=== PATIENT | female | born 1995 | race Caucasian/White ===

== ENCOUNTER 2022-09-14 17:21 | Emergency (ER) | payer OTHER ==
[~2022-09-14] VITALS: Ht 165.1 cm; Wt 77.3 kg
[2022-09-14 17:22] VITALS: BP 121/67
[2022-09-14 18:32] LABS: BASO % 0.6 % (0.0-1.0); EOS # 0.1 10^3/uL (0.0-0.5); EOS % 1.2 % (0.0-3.0); HEMATOCRIT 40.1 % (36.0-47.0); HEMOGLOBIN 13.1 g/dl (12.0-15.5); LYMPH # 2.8 10^3/uL (1.5-5.0); LYMPH % 38.6 % (24.0-44.0); MEAN CORPUSCULAR HEMOGLOBIN 29.2 pg (27.0-33.0); MEAN CORPUSCULAR HGB CONC 32.7 g/dl (32.0-36.5); MEAN CORPUSCULAR VOLUME 89.3 fl (80.0-96.0); MONO # 0.4 10^3/uL (0.0-0.8); MONO % 5.4 % (2.0-8.0); NEUTROPHILS # 3.9 10^3/uL (1.5-8.5); NEUTROPHILS % 54.1 % (36.0-66.0); PLATELET COUNT, AUTOMATED 197 10^3/uL (150-450); RED BLOOD COUNT 4.49 10^6/uL (4.00-5.40); WHITE BLOOD COUNT 7.2 10^3/uL (4.0-10.0)
[2022-09-14 18:58] LABS: BLOOD UREA NITROGEN 10 MG/DL (9-23); CALCIUM LEVEL 8.9 MG/DL (8.5-10.1); CARBON DIOXIDE LEVEL 26 MMOL/L (20-31); CHLORIDE LEVEL 106 MMOL/L (98-107); CREATININE FOR GFR 0.66 MG/DL (0.55-1.30); GLOMERULAR FILTRATION RATE > 60.0 (>60); GLUCOSE, FASTING 87 MG/DL (60-100); HCG, SERUM QUANTITATIVE 68.7 MIU/ML (<4.2); SODIUM LEVEL 138 MMOL/L (136-145)
[2022-09-14 20:26] LABS: GC DNA AMPLIFICATION NEGATIVE (NEGATIVE)
== END 2022-09-14 21:30 | disposition home or self-care (01) ==
LOC: M ED 17:21
DX: O20.0 Threatened abortion (principal); Z3A.00 Weeks of gestation of pregnancy not specified; Z88.1 Allergy status to other antibiotic agents; Z88.2 Allergy status to sulfonamides; Z91.040 Latex allergy status; Z98.890 Other specified postprocedural states

== ENCOUNTER → 2022-09-16 | Outpatient (CLI) | payer OTHER | LOC: M LAB 08:49 | PROVIDERS: ATTEND Obstetrics & Gynecology | DX: Z32.01 Encounter for pregnancy test, result positive (principal) ==

== ENCOUNTER 2023-07-01 10:35 | Outpatient (CLI) | payer OTHER ==
[~2023-07-01] VITALS: Ht 165.1 cm; Wt 93.6 kg
[2023-07-01 10:48] VITALS: BP 128/60
[2023-07-01] MEDS ORDERED: BUTACAP78 PO (11:02)
[2023-07-01] MEDS ORDERED: METO10TA2 PO (11:02)
[2023-07-01] MEDS ORDERED: REGL5TAB2 PO (11:02)
[2023-07-01] MEDS ORDERED: PRENTAB9 PO (11:02)
[2023-07-01] MEDS ORDERED: FREM225A SQ (11:02)
[2023-07-01 11:05] VITALS: BP 105/59
[2023-07-01] MEDS ORDERED: HOME MED LIST COMPLETE! XX SCH (11:05)
[2023-07-01] MEDS ORDERED: LR 1,000 ML IV ONE (11:40)
[2023-07-01 12:07] LABS: BASO % 0.2 % (0.0-1.0); EOS # 0.1 10^3/uL (0.0-0.5); EOS % 0.8 % (0.0-3.0); HEMATOCRIT 33.4 % (36.0-47.0); HEMOGLOBIN 11.3 g/dl (12.0-15.5); LYMPH # 1.4 10^3/uL (1.5-5.0); MEAN CORPUSCULAR HEMOGLOBIN 29.9 pg (27.0-33.0); MEAN CORPUSCULAR HGB CONC 33.8 g/dl (32.0-36.5); MEAN CORPUSCULAR VOLUME 88.4 fl (80.0-96.0); MONO # 0.5 10^3/uL (0.0-0.8); MONO % 4.9 % (2.0-8.0); NEUTROPHILS # 8.8 10^3/uL (1.5-8.5); NEUTROPHILS % 80.1 % (36.0-66.0); PLATELET COUNT, AUTOMATED 144 10^3/uL (150-450); RED BLOOD COUNT 3.78 10^6/uL (4.00-5.40); WHITE BLOOD COUNT 10.9 10^3/uL (4.0-10.0)
[2023-07-01 12:29] LABS: ALBUMIN 2.6 G/DL (3.2-5.2); ALKALINE PHOSPHATASE 117 U/L (46-116); ALT/SGPT 13 U/L (7.0-40); AST/SGOT 12 U/L (<34); BILIRUBIN,TOTAL 0.3 MG/DL (0.3-1.2); BLOOD UREA NITROGEN 7 MG/DL (9-23); CALCIUM LEVEL 8.6 MG/DL (8.5-10.1); CARBON DIOXIDE LEVEL 22 MMOL/L (20-31); CHLORIDE LEVEL 108 MMOL/L (98-107); CREATININE FOR GFR 0.43 MG/DL (0.55-1.30); GLOMERULAR FILTRATION RATE > 60.0 (>60); GLUCOSE, FASTING 72 MG/DL (60-100); POTASSIUM SERUM 3.8 MMOL/L (3.5-5.1); SODIUM LEVEL 141 MMOL/L (136-145); TOTAL PROTEIN 5.7 G/DL (5.7-8.2)
== END 2023-07-01 14:51 | disposition home or self-care (01) ==
LOC: M LDO 10:35
PROVIDERS: ATTEND Obstetrics & Gynecology
DX: O26.893 Other specified pregnancy related conditions, third trimester (principal); M54.59 Other low back pain; Z3A.32 32 weeks gestation of pregnancy; Z88.2 Allergy status to sulfonamides; Z91.040 Latex allergy status
CPT/HCPCS: 36415; 59025; 80053; 81001; 85025; G0463

== ENCOUNTER 2023-09-02 14:11 | Inpatient (IN) | payer OTHER ==
[2023-09-02] VITALS (7 sets, daily range): BP systolic 119–138; BP diastolic 69–82
[~2023-09-02] VITALS: Ht 165.1 cm; Wt 95.9 kg
[~2023-09-02 14:11] MED LIST: BUTACAP78 PO; FREM225A SQ; METO10TA2 PO; PRENTAB9 PO; REGL5TAB2 PO
[2023-09-02] MEDS ORDERED: HOME MED LIST COMPLETE! XX SCH (14:35)
[2023-09-02 15:18] LABS: BASO % 0.1 % (0.0-1.0); EOS % 0.3 % (0.0-3.0); HEMATOCRIT 35.2 % (36.0-47.0); HEMOGLOBIN 11.6 g/dl (12.0-15.5); LYMPH # 1.7 10^3/uL (1.5-5.0); LYMPH % 18.2 % (24.0-44.0); MEAN CORPUSCULAR HEMOGLOBIN 28.2 pg (27.0-33.0); MEAN CORPUSCULAR VOLUME 85.6 fl (80.0-96.0); MONO # 0.4 10^3/uL (0.0-0.8); MONO % 4.4 % (2.0-8.0); NEUTROPHILS # 7.2 10^3/uL (1.5-8.5); NEUTROPHILS % 76.7 % (36.0-66.0); PLATELET COUNT, AUTOMATED 163 10^3/uL (150-450); RED BLOOD COUNT 4.11 10^6/uL (4.00-5.40); WHITE BLOOD COUNT 9.3 10^3/uL (4.0-10.0)
[2023-09-02] MEDS ORDERED: OXYTOCIN DRIP 30 UNITS in IV 1 EA IV PRN ×4 (16:15)
[2023-09-02] MEDS ORDERED: TRANEXAMIC ACID INJection 1,000 MG in NS 100 ML IV PRN (16:15)
[2023-09-02] MEDS ORDERED: LIDOCAINE 1% MDV 20ML VIAL INFIL PRN (16:15)
[2023-09-02] MEDS ORDERED: METHYLERGONOVINE MALEATE 0.2MG/ML 1ML VIAL IM PRN (16:15)
[2023-09-02] MEDS: LR 1,000 ML IV SCH (16:15)
[2023-09-02] MEDS: miSOPROStol 50MCG 1/2 TABLET PO SCH ×2 (17:11→21:13)
[2023-09-03] VITALS (25 sets, daily range): BP systolic 110–139; BP diastolic 65–81
[2023-09-03] MEDS: LR 1,000 ML IV SCH ×5 (00:15→22:51)
[2023-09-03] MEDS: miSOPROStol 50MCG 1/2 TABLET PO SCH ×5 (03:55→17:00)
[2023-09-03] MEDS ORDERED: OXYTOCIN DRIP 30 UNITS in IV 1 EA IV SCH (17:20)
[2023-09-03] MEDS ORDERED: NALBUPHINE HCL 1MG/0.1ML (100MG/10ML) MDV IV PRN (22:35)
[2023-09-03] MEDS ORDERED: PROMETHAZINE 25MG/ML 1ML VIAL IV PRN (22:35)
[2023-09-04] VITALS (45 sets, daily range): BP systolic 103–139; BP diastolic 60–89; TEMP 97.7
[2023-09-04] MEDS: LR 1,000 ML IV SCH ×3 (04:54→18:05)
[2023-09-04] MEDS ORDERED: EPIDURAL/PCA KEYS XX PRN (15:20)
[2023-09-04] MEDS ORDERED: NALOXONE INJ 0.4MG/1ML VIAL IV PRN ×3 (15:20→22:25)
[2023-09-04] MEDS ORDERED: FENTANYL/ROPIVACAINE/NACL BAG 100 ML EPIDURAL SCH (15:20)
[2023-09-04] MEDS ORDERED: ONDANSETRON 4MG 2ML VIAL IV PRN ×3 (15:20→22:25)
[2023-09-04] MEDS ORDERED: diphenhydrAMINE 50MG/ML VIAL IV PRN ×2 (15:20→22:25)
[2023-09-04] MEDS ORDERED: ePHEDrine SULFATE 25 MG/5 ML(5MG/ML) SYRINGE IVP PRN (15:20)
[2023-09-04] MEDS ORDERED: LR 500 ML IV PRN (15:20)
[2023-09-04] MEDS ORDERED: REFLB XX ONE (15:24)
[2023-09-04] MEDS ORDERED: BICITRA 30ML SOLN UDC PO ONE (17:35)
[2023-09-04] MEDS ORDERED: ceFAZolin SOD 2 GM in IV 1 EA IV ONE (17:35)
[2023-09-04] MEDS ORDERED: ACETAMINOPHEN 1000MG 100ML IV BAG As Ordered ONE (21:08)
[2023-09-04] MEDS ORDERED: ONDANSETRON 4MG 2ML VIAL As Ordered ONE (21:08)
[2023-09-04] MEDS ORDERED: MORPHINE PRES-FREE INJ 10 MG/10 ML VIAL As Ordered ONE (21:08)
[2023-09-04] MEDS ORDERED: SODIUM BICARBONATE 8.4% INJ 50MEQ 50ML VIAL As Ordered ONE (21:08)
[2023-09-04] MEDS ORDERED: OXYTOCIN 30UNITS IN 0.9% NaCl 500ML IV BAG As Ordered ONE ×2 (21:08→21:49)
[2023-09-04] MEDS ORDERED: ePHEDrine SULFATE 25 MG/5 ML(5MG/ML) SYRINGE As Ordered ONE (21:08)
[2023-09-04] MEDS ORDERED: METOCLOPRAMIDE INJ 10MG/2ML VIAL As Ordered ONE (21:08)
[2023-09-04] MEDS ORDERED: LIDOCAINE 2% W/EPINEPHRINE 20ML VIAL **PRES FREE As Ordered ONE (21:08)
[2023-09-04] MEDS ORDERED: KETOROLAC 60MG 2ML VIAL As Ordered ONE (21:08)
[2023-09-04 21:40] LABS: CORD GAS ABE A -3.7; CORD GAS HCO3 A 23.1 MMOL/L; CORD GAS HCO3 V 23.5 MMOL/L; CORD GAS O2 SAT A 18.3 %; CORD GAS O2 SAT V 36.4 %; CORD GAS PCO2 A 48.8 mmHg; CORD GAS PCO2 V 47.4 mmHg; CORD GAS PH A 7.293 UNITS; CORD GAS PH V 7.313 UNITS; CORD GAS PO2 A 12.7 mmHg; CORD GAS PO2 V 17.6 mmHg; CORD GAS SBC A 19.7 MMOL/L; CORD GAS SBC V 20.6 MMOL/L; CORD GAS TCO2 A 24.6 MMOL/L; CORD GAS TCO2 V 24.9 MMOL/L
[2023-09-04] MEDS ORDERED: METHYLERGONOVINE MALEATE 0.2MG/ML 1ML VIAL IM PRN (22:15)
[2023-09-04] MEDS ORDERED: oxyCODONE 5MG TAB PO PRN ×3 (22:15→22:25)
[2023-09-04] MEDS ORDERED: SIMETHICONE 80MG CHEW TAB PO PRN (22:15)
[2023-09-04] MEDS ORDERED: METOCLOPRAMIDE INJ 10MG/2ML VIAL IV PRN ×2 (22:15→22:25)
[2023-09-04] MEDS ORDERED: LR 1,000 ML IV SCH (22:15)
[2023-09-04] MEDS ORDERED: OXYTOCIN DRIP 30 UNITS in IV 1 EA IV SCH (22:15)
[2023-09-04] MEDS ORDERED: RHOGAM 300MCG (1500IU) INJ IM SCH (22:15)
[2023-09-04] MEDS ORDERED: MEPERIDINE 25 MG/ML 1ML VIAL IV PRN (22:25)
[2023-09-04] MEDS: SLF 3 ML SYR IV SCH (22:25)
[2023-09-04] MEDS ORDERED: HYDROMORPHONE HCL 0.5 MG/ 0.5 ML SYRINGE IV PRN (22:25)
[2023-09-04] MEDS ORDERED: **NOTE PATIENT COMMENT** MISC XX SCH (22:25)
[2023-09-04] MEDS ORDERED: fentaNYL 100 MCG/2 ML INJECTION IV PRN (22:25)
[2023-09-05] VITALS: BP 125/65
[2023-09-05 00:30] VITALS: BP 121/66
[2023-09-05] MEDS: KETOROLAC 30 MG/ML 1ML VIAL IV SCH ×3 (03:23→15:38)
[2023-09-05 06:00] VITALS: BP 127/70; O2SAT 98
[2023-09-05] MEDS: ACETAMINOPHEN 500 MG TAB PO SCH ×5 (06:01→22:37)
[2023-09-05 07:58] LABS: HEMATOCRIT 32.8 % (36.0-47.0); HEMOGLOBIN 10.7 g/dl (12.0-15.5); MEAN CORPUSCULAR HEMOGLOBIN 28.5 pg (27.0-33.0); MEAN CORPUSCULAR HGB CONC 32.6 g/dl (32.0-36.5); MEAN CORPUSCULAR VOLUME 87.5 fl (80.0-96.0); PLATELET COUNT, AUTOMATED 153 10^3/uL (150-450); RED BLOOD COUNT 3.75 10^6/uL (4.00-5.40); WHITE BLOOD COUNT 14.6 10^3/uL (4.0-10.0)
[2023-09-05] MEDS: DOCUSATE SODIUM 100MG CAPSULE PO SCH ×2 (08:59→22:37)
[2023-09-05] MEDS: PRENATAL VITAMINS CHEWABLE TABLET PO SCH (08:59)
[2023-09-05] MEDS: SLF 3 ML SYR IV SCH ×2 (14:25→15:39)
[2023-09-05 18:00] VITALS: BP 111/59; O2SAT 99
[2023-09-05 22:16] VITALS: BP 119/74; O2SAT 98
[2023-09-05] MEDS: IBUPROFEN 800 MG TAB PO SCH (22:37)
[2023-09-06 02:14] VITALS: BP 120/65; O2SAT 98
[2023-09-06] MEDS: IBUPROFEN 800 MG TAB PO SCH (05:30)
[2023-09-06] MEDS: ACETAMINOPHEN 500 MG TAB PO SCH ×2 (05:30→10:15)
[2023-09-06 06:04] VITALS: BP 121/75; O2SAT 98
[2023-09-06] MEDS: PRENATAL VITAMINS CHEWABLE TABLET PO SCH (08:34)
[2023-09-06] MEDS: DOCUSATE SODIUM 100MG CAPSULE PO SCH (08:34)
[2023-09-06] MEDS ORDERED: OXYC-517 PO (08:41)
[2023-09-06] MEDS ORDERED: IBUP80TA PO (08:41)
[2023-09-06] MEDS ORDERED: COLA100C5 PO (08:41)
[2023-09-06] MEDS ORDERED: ACET-683 PO (08:41)
[2023-09-06] MEDS ORDERED: MEASLES,MUMPS,RUBELLA VACCINE INJ (MMR-II) SC.IMMUN ONE (09:00)
[2023-09-06 10:00] VITALS: BP 128/70; O2SAT 99
== END 2023-09-06 13:30 | disposition home or self-care (01) | DRG 773 ==
LOC: M LDI 14:11 → M OBS 09-04 23:32
PROVIDERS: ADMIT Obstetrics & Gynecology; ATTEND Obstetrics & Gynecology
PROC: 3E0P7GC Introduction of Other Therapeutic Substance into Female Reproductive, Via Natural or Artificial Opening (ICD-10-PCS; 2023-09-02)
PROC: 10D00Z1 Extraction of Products of Conception, Low, Open Approach (ICD-10-PCS; principal; 2023-09-04 20:00)
DX: O48.0 Post-term pregnancy (principal); Z37.0 Single live birth; Z3A.41 41 weeks gestation of pregnancy; O61.0 Failed medical induction of labor

== ENCOUNTER 2023-11-29 15:57 | Emergency (ER) | payer OTHER ==
[~2023-11-29] VITALS: Ht 165.1 cm; Wt 87.0 kg
[~2023-11-29 15:57] MED LIST changes: +ACET-683 PO; +COLA100C5 PO; +IBUP80TA PO; +OXYC-517 PO
[2023-11-29] MEDS: NS 1,000 ML IV ONE (17:15)
[2023-11-29 17:40] LABS: BASO % 0.4 % (0.0-1.0); EOS % 0.8 % (0.0-3.0); HEMATOCRIT 41.5 % (36.0-47.0); HEMOGLOBIN 13.9 g/dl (12.0-15.5); LYMPH % 21.5 % (24.0-44.0); MEAN CORPUSCULAR HEMOGLOBIN 28.5 pg (27.0-33.0); MEAN CORPUSCULAR HGB CONC 33.5 g/dl (32.0-36.5); MEAN CORPUSCULAR VOLUME 85.2 fl (80.0-96.0); MONO % 4.4 % (2.0-8.0); NEUTROPHILS % 72.6 % (36.0-66.0); PLATELET COUNT, AUTOMATED 262 10^3/uL (150-450); RED BLOOD COUNT 4.87 10^6/uL (4.00-5.40); WHITE BLOOD COUNT 10.9 10^3/uL (4.0-10.0)
[2023-11-29 17:41] LABS: EOS # 0.1 10^3/uL (0.0-0.5); LYMPH # 2.4 10^3/uL (1.5-5.0); MONO # 0.5 10^3/uL (0.0-0.8)
[2023-11-29 18:08] LABS: HCG, SERUM QUALITATIVE NEGATIVE (NEGATIVE)
[2023-11-29 18:09] LABS: LIPASE 27 U/L (12-53)
[2023-11-29 18:11] LABS: ALKALINE PHOSPHATASE 106 U/L (46-116); ALT/SGPT 10 U/L (7.0-40); AST/SGOT 10 U/L (<34); BILIRUBIN,DIRECT 0.2 MG/DL (<0.4); BILIRUBIN,TOTAL 0.5 MG/DL (0.3-1.2); BLOOD UREA NITROGEN 10 MG/DL (9-23); CALCIUM LEVEL 9.5 MG/DL (8.5-10.1); CARBON DIOXIDE LEVEL 26 MMOL/L (20-31); CHLORIDE LEVEL 106 MMOL/L (98-107); CREATININE FOR GFR 0.75 MG/DL (0.55-1.30); GLOMERULAR FILTRATION RATE > 60.0 (>60); GLUCOSE, FASTING 93 MG/DL (60-100); POTASSIUM SERUM 4.3 MMOL/L (3.5-5.1); SODIUM LEVEL 140 MMOL/L (136-145); TOTAL PROTEIN 6.9 G/DL (5.7-8.2)
[2023-11-29] MEDS ORDERED: ISOVUE-370 76% 100ML VIAL As Ordered ONE (18:15)
[2023-11-29] MEDS: FLEET OIL RETENTION ENEMA PR PRN (19:30)
[2023-11-29] MEDS ORDERED: MIRA3350 PO (20:50)
[2023-11-29] MEDS: LACTULOSE 20GM/30ML SYRUP UDC PO ONE (20:51)
[2023-11-29 21:02] VITALS: BP 162/78; TEMP 98.1; O2SAT 99
== END 2023-11-29 21:12 | disposition home or self-care (01) ==
LOC: M ED 15:57
DX: K56.41 Fecal impaction (principal); R33.9 Retention of urine, unspecified; K44.9 Diaphragmatic hernia without obstruction or gangrene; G43.909 Migraine, unspecified, not intractable, without status migrainosus; Z88.2 Allergy status to sulfonamides; Z91.040 Latex allergy status; Z79.1 Long term (current) use of non-steroidal anti-inflammatories (NSAID); Z79.810 Long term (current) use of selective estrogen receptor modulators (SERMs); Z79.899 Other long term (current) drug therapy
CPT/HCPCS: 74177; 80048; 80076; 81001; 83690; 84703; 85025; 87086; 96360; 96361; 99284; Q9967